=== PATIENT | male | born 1975 ===

== ENCOUNTER → 2019-09-18 09:45 | Outpatient (CLI) | payer BC, SELFPAY ==
--- NOTE | ~2019-09-18 | XR_ITS ---
XR chest 2V DATE: 09/18/2019 10:36 INDICATION: Shortness of breath TECHNIQUE: PA and lateral views COMPARISON: 06/22/2018 CT chest 06/15/2018 two-view chest x-ray FINDINGS: Mild prominence of the ascending aorta is again noted, stable in appearance compared to 06/15/2018 chest radiographic examination. The lungs are hyperinflated but clear of infiltrate or consolidation. Heart size is normal. No hilar or mediastinal mass lesion or lymphadenopathy. No pleural effusion or pulmonary vascular congestion o r pneumothorax. IMPRESSION: Stable mild prominence of the ascending aorta since 06/15/2018 Bilateral hyperinflation Reviewed, dictated and finalized at location A.
--- NOTE | ~2019-09-18 | XR_ITS ---
XR lumbar spine 2-3V DATE: 09/18/2019 10:06 INDICATION: Low back pain, sciatica TECHNIQUE: AP, lateral, coned lateral lumbosacral views COMPARISON: 02/16/2017 lumbar spine FINDINGS: Normal alignment of the lumbar spine. No fracture or bone destruction or spondylolisthesis. The inclu ded lower thoracic and lumbar pedicles are intact. Lumbar interspaces are preserved. There is moderat arpan severe degenerative disc disease however at L5-S1. The sacroiliac joints are normal. IMPRESSION: Moderately severe degenerative disc disease at L5-S1 Reviewed, dictated and finalized at location B.
== END ==
PROVIDERS: PCP Physician Assistant Medical; Visit Provider Physician Assistant Medical
DX: M54.40 Lumbago with sciatica, unspecified side (principal); M51.37 Other intervertebral disc degeneration, lumbosacral region; R91.8 Other nonspecific abnormal finding of lung field
CPT/HCPCS: 71046; 72100

== ENCOUNTER 2019-09-28 13:32 | Outpatient (CLI) | payer BC, SELFPAY ==
--- NOTE | ~2019-09-28 | MR_ITS ---
EXAMINATION: MR lumbar spine wo con DATE: 09/28/2019 14:23 INDICATION: Low back pain TECHNIQUE: Magnetic resonance imaging (MRI) of the lumbar spine was performed without intravenous con trast. Sequences included sagittal T2-weighted FSE, sagittal T2-weighted FS FSE, sagittal T1-weighted FSE, and axial T2-weighted FSE. COMPARISON: 12/31/2016 FINDINGS: Alignment is normal. Vertebral body heights are normal. T1 and T2 hyperintense hemangioma at L4. Davina re disc height loss at L5-S1 with associated degenerative fibrofatty endplate changes. Bone marrow si gnal is otherwise normal. Annular fissure with disc desiccation and mild disc height loss at L4-L5. T he conus medullaris terminates at L1. There is normal signal in the caudal spinal cord. Paravertebral soft tissues are unremarkable. The following disc levels are specifically discussed: T12-L1: The disc does not extend beyond the endplate margin. There is mild bilateral facet joint oste oarthritis. There is no neural foraminal stenosis. There is no central canal stenosis. L1-L2: The disc does not extend beyond the endplate margin. There is mild bilateral facet joint osteo arthritis. There is no neural foraminal stenosis. There is no central canal stenosis. L2-L3: Very small right foraminal disc protrusion. There is minimal bilateral facet joint osteoarthri tis. There is mild right neural foraminal stenosis. There is no central canal stenosis. L3-L4: Small bilateral foraminal disc protrusions There is mild bilateral facet joint osteoarthritis. There is minimal bilateral neural foraminal stenosis. There is no central canal stenosis. L4-L5: Disc is bulging with central annular fissure. There is mild bilateral facet joint osteoarthrit is. There is mild bilateral neural foraminal stenosis. There is mild central canal stenosis. L5-S1: Annular fissure with broad-based disc extrusion extending from foraminal zone to foraminal zon e with disc material extending couple millimeter cephalad and caudal to the level of the endplates. T here is mild left and moderate right facet joint osteoarthritis. There is moderate right and moderate to severe left neural foraminal stenosis. There is mild central canal stenosis. IMPRESSION: 1. No significant interval change in severe lower lumbar spondylosis. Reviewed, dictated and finalized at location A.
== END 2019-09-28 13:33 | disposition home or self-care (01) ==
PROVIDERS: PCP Family Medicine; Visit Provider Physician Assistant Medical
DX: G89.29 Other chronic pain (principal); M54.5 Low back pain
CPT/HCPCS: 72148

== ENCOUNTER 2021-10-18 13:17 | Observation (INO) | payer BC, SELFPAY ==
[2021-10-18] VITALS (32 sets, daily range): BP systolic 140–170; BP diastolic 91–138; PULSE 87–107; RESP 7–30; TEMP 36.4–36.7; O2SAT 100; BMI 22.6
--- NOTE | ~2021-10-18 | XR_ITS ---
EXAMINATION: XR chest 2V EXAM DATE: 10/18/2021 13:45 INDICATION: Shortness of breath, midline chest pain. TECHNIQUE: Frontal and lateral projections of the chest obtained and reviewed. Comparison is made to prior examination from 09/18/2019. FINDINGS: The lungs are clear. There are no pleural effusions. The cardiomediastinal silhouette is within normal limits. There is no pneumothorax suspected. The bones and soft tissues are unremarkab le. IMPRESSION: Normal chest x-ray exam. Reviewed, dictated and finalized at location A. IMPRESSION: Normal chest x-ray exam.
--- NOTE | ~2021-10-18 | NM_ITS ---
EXAMINATION: NM nila stress w perfusion DATE: 10/19/2021 12:40 INDICATION: Chest pain. TECHNIQUE: Rest images were obtained following intravenous administration of 9.6 mCi Tc99m tetrofosmi n (Myoview). The patient was infused intravenously with Lexiscan (regadenoson). Then, 30.8 mCi Tc99m tetrofosmin (Myoview) was administered intravenously, and stress images were obtained. Data was recon structed into short axis and horizontal and vertical long axis SPECT images. Gated SPECT images were also obtained. COMPARISON: None. FINDINGS: There is no definite reversible or fixed perfusion abnormality to suggest ischemia or infar ction. There is no segmental wall motion abnormality. Left ventricular ejection fraction measures 5 8%. IMPRESSION: 1. No definite ischemia or infarct. 2. Normal left ventricular ejection fraction measuring 58%. Reviewed, dictated and finalized at location A.
--- NOTE | ~2021-10-18 | CT_ITS ---
EXAMINATION: CTA chest PE protocol DATE: 10/18/2021 17:35 INDICATION: chest pain and dyspnea TECHNIQUE: Computed tomography angiography (CTA) of the chest was performed with 100 mL Omnipaque-350 intravenous contrast timed to evaluate the pulmonary arteries. Coronal maximum intensity projection 3D-reconstructions were created by the technologist. The dose-length product (DLP) was 458.41 mGy-cm. Automated exposure control and iterative reconstruction technique were employed. COMPARISON: 06/22/2018. FINDINGS: Study quality: Adequate Pulmonary arteries: No pulmonary emboli detected. Thoracic aorta: Unchanged aortic ectasia. Lung parenchyma and airways: Apical pleural scarring. Thoracic inlet, axillae and chest wall: Unremarkable. Mediastinum: Normal. Heart and pericardium: Normal. Coronary artery calcifications: Absent. Pleura: Unremarkable. Upper abdomen: No significant finding. Bones: No acute osseous finding. IMPRESSION: No CT evidence of pulmonary embolism. No acute intrathoracic process identified. Reviewed, dictated and finalized at location K. IMPRESSION: No CT evidence of pulmonary embolism. No acute intrathoracic process identified .
--- NOTE | ~2021-10-18 | US_ITS ---
EXAMINATION: US abdomen limited EXAM DATE: 10/19/2021 10:50 INDICATION: Abnormal LFT's . TECHNIQUE: Multiple grayscale and Doppler images of the abdomen right upper quadrant were obtained (b y a technologist who performed the scan) and subsequently reviewed. There is no prior study for dima smi. FINDINGS: The pancreatic head and body are normal in appearance. The pancreatic tail is not visualized. The l iver has normal echogenicity and contour. There are no focal liver lesions identified. There is no evidence of intrahepatic biliary duct dilation. Portal venous flow was seen in the hepatopedal, nor mal direction and has normal Doppler waveform. No right-sided hydronephrosis. Common bile duct measures 5 mm, which is normal. The gallbladder wall is normal in thickness, with ex pected amount of distention. No sonographic evidence of pericholecystic fluid. There is no cholelit hiases. Technologist performing exam reports patient did not demonstrate sonographic Hernandez's sign. Please note that this sign is less reliable in patients who have received pain medication. IMPRESSION: Unremarkable abdominal ultrasound exam. Reviewed, dictated and finalized at location B.
--- NOTE | 2021-10-18 13:19 | ECG_ITS ---
Measurements Intervals [place] Rate: 107 P: 44 RI: 156 QRS: 23 QRSD: 88 T: 42 QT: 331 QTc: 443 Interpretive Statements SINUS TACHYCARDIA NONSPECIFIC ST ABNORMALITY BORDERLINE ECG NO PREVIOUS ECG AVAILABLE FOR COMPARISON Electronically Signed On 10-19-2021 13:53:11 CDT by Kvng Fu M.D.
--- NOTE | 2021-10-18 13:34 | PC.NURSE ---
Lab rejected green top at this time
--- NOTE | 2021-10-18 13:41 | PC.NURSE ---
pt to xray via w/c
[2021-10-18 13:43] LABS: Basophils Percent Auto 0.5 % (0.2-1.2); Eosinophils Absolute Auto 0.1 K/mm3 (0-0.3); Eosinophils Percent Auto 0.9 % (0-4.4); Hematocrit 43.3 % (42.0-52.0); Hemoglobin 15.7 g/dL (14.0-18.0); Immature Granulocyte Absolute 0.04 K/mm3 (0.00-0.031); Immature Granulocyte Percent A 0.5 % (0-0.5); Immature Platelet Fraction Pct 3.9 % (0.9-11.2); Lymphocytes Absolute Auto 1.47 K/mm3 (0.9-3.2); Mean Corpuscular HGB Conc 36.3 g/dl (32-36); Mean Corpuscular Hemoglobin 36.5 pg (26-34); Mean Corpuscular Volume 100.7 fl (80-100); Mean Platelet Volume 9.4 fl (7.4-10.4); Monocytes Absolute Auto 0.5 K/mm3 (0.1-0.6); Neutrophils Absolute Auto 6.1 K/mm3 (1.3-6.7); Neutrophils Percent Auto 74.1 % (45.5-73.1); Platelet Count Result 162 k/mm3 (150-375); Red Cell Distribution Width 13.2 % (11.5-14.5); White Blood Count 8.2 K/mm3 (4.5-10.0)
--- NOTE | 2021-10-18 13:52 | PC.NURSE ---
Lab rejected green tops at this time collected by tech
[2021-10-18] MEDS: SODIUM CHLORIDE 0.9% IV 1,000 ML 999 ML IV CONT (14:10)
--- NOTE | 2021-10-18 14:20 | PC.NURSE ---
Lab called and rejected green top
[2021-10-18 14:31] LABS: Prothrombin Time 12.4 Seconds (11.1-14.7)
[2021-10-18 14:32] LABS: Partial Thromboplastin Time 33.7 SECONDS (22.3-36.8)
--- NOTE | 2021-10-18 15:43 | PC.NURSE ---
Lab top and rejected green top- collected by this RN
--- NOTE | 2021-10-18 16:22 | ED.SOB ---
HPI - SOB/Dyspnea General Chief Complaint: Shortness of Breath/Dyspnea Stated Complaint: sob Time Seen by Provider: 10/18/21 13:46 Source: RN notes reviewed History of Present Illness HPI Narrative: Patient presents emergency department from home for chest pain. Patient states he was out mowing the yard today when he got a feeling of chest tightness across his anterior chest as well as a feeling shortness of breath. States that the symptoms resolved once he stopped mowing his yard moved inside and rest he states that over the past week he has been having intermittent feelings of shortness of breath with some tightness of his chest usually worse with activity improves with rest he gone to the urgent care today and had a Covid and flu test that was negative states he has had some rhinorrhea with this but denies any other symptoms states he has been under increased stress secondary to his passing away from a heart attack in the past year he denies any cardiac history does have a history of tobacco use and hypertension Related Data Home Medications Medication Instructions Recorded Confirmed No Home Medications 10/18/21 10/18/21 Allergies Allergy/AdvReac Type Severity Reaction Status Date / Time Penicillins Allergy Unknown Unknown Verified 10/18/21 14:01 Review of Systems Review of Systems: Gen.: Denies fevers or chills Eyes: Denies eye pain or visual change ENT: Reports rhinorrhea Respiratory: Ports shortness of breath CV: Reports chest pain GI: Denies abdominal pain nausea, emesis or diarrhea Musculoskeletal: Denies back pain or muscle pain Neuro: Denies numbness, tingling, weakness or focal weakness Skin: Denies rash Except as documented, all other systems reviewed and negative [facility] Past Medical History Medical History (Updated 10/18/21 @ 19:29 by Baldo Hearn DO) BMI 24.0-24.9, adult Essential hypertension Hyperlipidemia Family History Family History Father No problems noted. Mother Collapsed lung Hypertension Sibling No problems noted. 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 CARDIOVASCULAR: Regular rate and rhythm without murmurs rubs or gallops. ABDOMINAL: Soft, nontender, nondistended, no rebound or guarding MUSCULOSKELETAl: Moves all extremities. No clubbing, cyanosis or edema. NEURO: Awake and alert. Following commands, speech normal, no focal deficits SKIN:: Warm, dry. No rashes lesions or abrasions PSYCHIATRIC: Normal affect/mood, Course Course Emergency Course: Discussed with Dr. Ivan recommends admission with cardiac rule out Discussed with Dr. Mayes agrees with admission Discussed with patient and family results of workup and diagnosis. Discussed need for admission. Patient and family understand and agree to current treatment plan Vital Signs Vital signs: Vital Signs Temperature 97.6 F 10/18/21 13:32 Pulse Rate 101 H 10/18/21 13:32 Respiratory Rate 18 10/18/21 13:32 Blood Pressure 160/95 H 10/18/21 13:32 Pulse Oximetry 100 10/18/21 13:32 Temperature 97.6 F 10/18/21 13:32 Pulse Rate 105 H 10/18/21 19:13 Respiratory Rate 18 10/18/21 19:13 Blood Pressure 170/138 H 10/18/21 19:13 Pulse Oximetry 100 10/18/21 19:13 MDM - SOB/Dyspnea Lab Data Result diagrams: 10/18/21 13:34
--- NOTE | 2021-10-18 16:25 | PC.NURSE ---
Green tops (2) rejected again by lab, collected by this RN
--- NOTE | 2021-10-18 16:30 | PC.NURSE ---
Phlebotomy called to draw patient
--- NOTE | 2021-10-18 16:47 | PC.NURSE ---
Lab rejected green tops collected by phlebotomy
--- NOTE | 2021-10-18 16:50 | PC.NURSE ---
called lab and spoke to allyn about green tops. He asked that we send a red top instead of a green top.
[2021-10-18 17:16] LABS: Alanine Aminotransferase 66 U/L (4-50); Albumin Level 2.6 g/dL (3.5-5.1); Alkaline Phosphatase 107 U/L (38-126); Anion Gap 5 mmol/L (8-16); Aspartate Amino Transferase 98 U/L (17-59); Bilirubin,Total 1.6 mg/dL (0.2-1.3); Blood Urea Nitrogen 12 mg/dL (9-20); Calcium 6.7 mg/dL (8.4-10.2); Carbon Dioxide 16 mmol/L (22-30); Chloride 109 mmol/L (98-107); Estimated CRCL calculation 104 ml/min; Estimated Glomerular Filt Rate > 60; Glucose 78 mg/dL (65-110); Potassium 3.9 mmol/L (3.4-5.0); Sodium 130 mmol/L (137-145)
[2021-10-18 17:25] LABS: Estimated CRCL calculation 86 ml/min; Estimated Glomerular Filt Rate > 60
[2021-10-18 18:58] LABS: Troponin I < 0.012 ng/mL (0.000-0.034)
--- NOTE | 2021-10-18 19:15 | PC.NURSE ---
Pt calling out. RN into room to speak with pt. Pt expressing frustration with how long of a visit he has had and how many blood draws that needed due to hemolzyed samples. RN explained process to pt. Pt verbalized understanding. RN informed pt that all test are back and will speak to ERP about desire to be d/c.
--- NOTE | 2021-10-18 19:26 | PM.IMHP ---
H&P: HPI History of Present Illness Date/Time: 10/18/21 19:26 Chief Complaint: Chest pain Narrative: This is a 46-year-old male with past medical history significant for hypertension, patient smokes half a pack of cigarettes daily for the last 20+ years he also drinks 6 beers most days. Patient just recently lost his in May of 2021 has had poor appetite ever since and has been under lot of stress. He presents today to the emergency room due to chest pain localized to the retrosternal area nonradiating while he was exerting himself, had some dizziness and diaphoresis with it ,no near-syncope or syncope he felt nauseous but no vomiting, no palpitations, the pain went away on its own but was intense enough to bring him to the emergency room he rated at 10/10 in intensity when was at its worse, patient has had nasal congestion and postnasal drip however no wheezing, no fevers, no chills, no rigors, no change in sputum quality. Patient has had also daily headaches. In emergency room patient was found to have systolic blood pressure in the 150-100 and 60s range and diastolic blood pressure in the 90s range. EKG did not show any acute changes. A chest x-ray was clear and patient was rule out for PE with a negative CT angiogram of the chest. Patient is been admitted for further evaluation ,management and treatment. Review of Systems Review of Systems: Chest pain localized in the retrosternal area Constitutional: Constitutional: Denies chills, Reports excessive sweating, Denies fatigue, Denies fever(s), Denies malaise, Denies night sweats, Reports poor appetite and Denies weakness Eyes: Eyes: Denies change in vision ENT: Denies dysphagia, Reports nasal discharge, Denies odynophagia, Reports post nasal drip and Denies sore throat Cardiovascular: Cardiovascular: Reports chest pain, Denies pedal edema, Denies leg edema, Reports lightheadedness, Denies radiating jaw, neck or arm pain, Denies palpitations, Denies dyspnea on exertion, Denies orthopnea and Denies paroxysmal nocturnal dyspnea Respiratory: Respiratory: Denies change in phlegm color, Denies chest congestion, Denies cough, Denies excessive phlegm production, Denies pain on inspiration, Denies pain with cough and Denies wheezing Gastrointestinal: Gastrointestinal: Denies abdominal pain, Denies dyspepsia, Denies heartburn, Denies diarrhea, Reports nausea and Denies vomiting Genitourinary: Genitourinary: Denies dysuria Musculoskeletal: Musculoskeletal: Denies myalgias, Denies arthralgias and Denies muscle weakness Integumentary/Breasts: Skin/Breast: Denies rash Neurologic: Denies focal weakness and Denies Sensory deficit (Neuro) Psychiatric: Psychiatric: Reports change in appetite Endocrine: Endocrine: Denies cold intolerance, Denies heat intolerance, Denies polydipsia and Denies palpitations Hematologic/Lymphatic: Hematologic/Lymphatic: Reports no additional hematologic/lymphatic complaints and Reports as per HPI Allergic/Immunologic: Allergic/Immunologic: Reports no additional allergic/immunologic complaints and Reports as per HPI [facility] Past Medical History Medical History (Updated 10/19/21 @ 01:54 by Gene Garcia MD) BMI 24.0-24.9, adult Essential hypertension Hyperlipidemia Family History Family History Father No problems noted. Mother Collapsed lung Hypertension Sibling No problems noted. Other Family history of cardiovascular disease Social History Social History Smoking packs per day: 0.5 Smoking cigarettes per day: 10.0 Years smoked: 26 Smoking pack-years: 13.00 Smoking status: Current every day smoker Tobacco type: cigarettes Second hand tobacco smoke exposure: Yes Alcohol intake: current Drinks per week: 42 Substance use: never Substance use type: does not use Additional occupation/education com
[2021-10-18] MEDS: ASPIRIN 81 MG CHEWABLE TABLET 324 MG PO (19:28)
--- NOTE | 2021-10-18 21:31 | ADMGEN ---
This patient, Blaise Covarrubias, was admitted to IMU Room 210-01. Patient/family oriented to hospital policies and general routines including ID bracelet, bed and alarms, visiting hours, pain management, procedures, bathroom and other care routines, personal items, smoking policy, room service/diet, and visiting hours. Information on how to activate the Rapid Response Team has been discussed. Patient/Family are encouraged to report perceived risks to care and to ask questions if they do not understand what they are told or what they should do.
[2021-10-19] VITALS (8 sets, daily range): BP systolic 111–144; BP diastolic 79–92; PULSE 56–112; RESP 16–20; TEMP 36.4–36.7; O2SAT 99–100
--- NOTE | 2021-10-19 | EST_ITS ---
Patient Info Name: Blaise Covarrubias Age: 46 years : 1975 Gender: Male Ht: 74 in Wt: 190 lbs BSA: 2.12 m2 HR: 80 bpm BP: 132 / 93 mmHg Heart Rhythm: Sinus Rhythm Exam Date: 10/19/2021 11:41 AM Exam Location: [facility] Stress Patient Status: Inpatient Admit Date: 10/18/2021 Staff Ordering Physician: Constantino Cook MD Attending Provider: Constantino Cook MD Exercise Technologist: Bernadine Laboy, CT Exam Type: CA stress nila w NM Summary 1. Normal sinus rhythm - normal ECG. 2. No ST segment abnormalities following injection of Lexiscan. 3. Clinically and electrocardiographically uneventful Lexiscan stress test. 4. Myocardial perfusion imaging exam to be dictated by the Radiology Department. Protocol: Lexiscan Stress ECG Details Stage: REST Duration (min): 0 min : 58 sec HR (bpm): 85 SBP (mmHg): 132 DBP (mmHg): 93 Stage: REST Duration (min): 5 min : 42 sec HR (bpm): 83 SBP (mmHg): 132 DBP (mmHg): 93 Stage: STAGE 1 Duration (min): 1 min : 0 sec HR (bpm): 102 SBP (mmHg): 136 DBP (mmHg): 87 Stage: RECOVERY Duration (min): 1 min : 0 sec HR (bpm): 112 SBP (mmHg): 136 DBP (mmHg): 87 Stage: RECOVERY Duration (min): 2 min : 0 sec HR (bpm): 117 SBP (mmHg): 136 DBP (mmHg): 87 Stage: RECOVERY Duration (min): 3 min : 0 sec HR (bpm): 93 SBP (mmHg): 134 DBP (mmHg): 97 Stage: RECOVERY Duration (min): 4 min : 0 sec HR (bpm): 103 SBP (mmHg): 134 DBP (mmHg): 97 Stage: RECOVERY Duration (min): 4 min : 6 sec HR (bpm): 89 SBP (mmHg): 134 DBP (mmHg): 97 Rest HR: 83 bpm Peak HR: 121 bpm Rest Sys BP: 132 mmHg Peak Sys BP: 136 mmHg Max Pred HR: 173 bpm % Max Pred HR: 70 % Target HR: 147 bpm Max RPP: 16,456 bpm*mmHg Termination Reason: Completed protocol Cardiac Symptoms: None Total Time: 1 min : 0 sec Rest Moise BP: 93 mmHg Peak Moise BP: 87 mmHg Total Dose: 0.4 mg Resting ECG Normal sinus rhythm - normal ECG. Stress ECG No ST segment abnormalities following injection of Lexiscan. Report Signatures
[2021-10-19 04:47] LABS: Basophils Percent Auto 0.5 % (0.2-1.2); Eosinophils Absolute Auto 0.2 K/mm3 (0-0.3); Eosinophils Percent Auto 3.8 % (0-4.4); Hematocrit 36.3 % (42.0-52.0); Hemoglobin 12.9 g/dL (14.0-18.0); Immature Granulocyte Absolute 0.02 K/mm3 (0.00-0.031); Immature Granulocyte Percent A 0.4 % (0-0.5); Lymphocytes Absolute Auto 2.23 K/mm3 (0.9-3.2); Lymphocytes Percent Auto 40.2 % (18.3-44.2); Mean Corpuscular HGB Conc 35.5 g/dl (32-36); Mean Corpuscular Hemoglobin 36.1 pg (26-34); Mean Corpuscular Volume 101.7 fl (80-100); Mean Platelet Volume 9.6 fl (7.4-10.4); Monocytes Absolute Auto 0.5 K/mm3 (0.1-0.6); Monocytes Percent Auto 9.2 % (2.6-8.5); Neutrophils Absolute Auto 2.6 K/mm3 (1.3-6.7); Neutrophils Percent Auto 45.9 % (45.5-73.1); Platelet Count Result 120 k/mm3 (150-375); Red Blood Count 3.57 M/mm3 (4.6-6.20); Red Cell Distribution Width 13.1 % (11.5-14.5); White Blood Count 5.6 K/mm3 (4.5-10.0)
[2021-10-19 08:07] LABS: Anion Gap 3 mmol/L (8-16); Blood Urea Nitrogen 11 mg/dL (9-20); Calcium 7.7 mg/dL (8.4-10.2); Carbon Dioxide 28 mmol/L (22-30); Chloride 102 mmol/L (98-107); Estimated CRCL calculation 83 ml/min; Estimated Glomerular Filt Rate > 60; Glucose 102 mg/dL (65-110); Sodium 133 mmol/L (137-145)
[2021-10-19 08:08] LABS: Alanine Aminotransferase 72 U/L (4-50); Albumin Level 3.3 g/dL (3.5-5.1); Alkaline Phosphatase 103 U/L (38-126); Aspartate Amino Transferase 128 U/L (17-59); Bilirubin,Total 2.8 mg/dL (0.2-1.3)
[2021-10-19 08:25] LABS: Troponin I 0.021 ng/mL (0.000-0.034)
[2021-10-19] MEDS: lisinopriL 20 MG TABLET PO (08:55)
--- NOTE | 2021-10-19 11:27 | PM.IMPN ---
Progress Note: A&P Assessment and Plan (1) Chest pain: Code(s): R07.9 - Chest pain, unspecified Status: Acute Assessment and Plan: Patient has been admitted to IMU WILL DO LEXISCAN STRESS TEST IN A.M. Supportive care EKG reviewed Serial troponins CTA reviewed Chest x-ray reviewed (2) Essential hypertension: Code(s): I10 - Essential (primary) hypertension Status: Acute Assessment and Plan: Patient has been restarted on lisinopril Uncontrolled (3) Tobacco use: Code(s): Z72.0 - Tobacco use Status: Acute Assessment and Plan: Nicotine patch as needed Consult about tobacco cessation (4) Alcohol abuse: Code(s): F10.10 - Alcohol abuse, uncomplicated Status: Acute Assessment and Plan: CIWA protocol as needed Consult about cessation (5) Chronic low back pain without sciatica: Code(s): M54.5 - Low back pain; G89.29 - Other chronic pain Status: Acute Assessment and Plan: Tylenol p.r.n. (6) Abnormal LFTs: Code(s): R79.89 - Other specified abnormal findings of blood chemistry Status: Acute Assessment and Plan: Likely secondary to alcohol intake Right upper quadrant ultrasound in a.m. (7) Hyponatremia: Code(s): E87.1 - Hypo-osmolality and hyponatremia Status: Acute Assessment and Plan: Patient appears euvolemic Has had poor oral intake due to grievance Also patient drinks several beers daily Will encourage p.o. intake Continue to monitor Some dilutional effect from beer drinking is possible however overall with poor oral intake Monitor daily intake and output Subjective Date/time seen: 10/19/21 11:27 Interval history: HPI:This is a 46-year-old male with past medical history significant for hypertension, patient smokes half a pack of cigarettes daily for the last 20+ years he also drinks 6 beers most days. Patient just recently lost his in May of 2021 has had poor appetite ever since and has been under lot of stress. He presents today to the emergency room due to chest pain localized to the retrosternal area nonradiating while he was exerting himself, had some dizziness and diaphoresis with it ,no near-syncope or syncope he felt nauseous but no vomiting, no palpitations, the pain went away on its own but was intense enough to bring him to the emergency room he rated at 10/10 in intensity when was at its worse, patient has had nasal congestion and postnasal drip however no wheezing, no fevers, no chills, no rigors, no change in sputum quality. Patient has had also daily headaches. In emergency room patient was found to have systolic blood pressure in the 150-100 and 60s range and diastolic blood pressure in the 90s range. EKG did not show any acute changes. A chest x-ray was clear and patient was rule out for PE with a negative CT angiogram of the chest. Patient is been admitted for further evaluation ,management and treatment. Review of Systems Review of Systems: All systems reviewed & are unremarkable except as noted in HPI and below (HPI) Objective Data Vital Signs Vital Signs: Vital Signs - 24 hr 10/18/21 13:32 10/18/21 13:59 10/18/21 14:00 Temperature 97.6 F Pulse Rate 101 H 98 106 H Respiratory Rate 18 18 30 H Blood Pressure 160/95 H 169/129 H 169/129 H Pulse Oximetry 100 100 100 10/18/21 14:31 10/18/21 15:01 10/18/21 15:31 Temperature Pulse Rate 93 91 91 Respiratory Rate 19 18 18 Blood Pressure 156/105 H 154/103 H 155/99 H Pulse Oximetry 100 100 100 10/18/21 16:49 10/18/21 17:01 10/18/21 19:11 Temperature Pulse Rate 87 88 107 H Respiratory Rate 18 7 L 20 Blood Pressure 155/99 H 146/94 H Pulse Oximetry 100 100 100 10/18/21 19:13 10/18/21 19:14 10/18/21 19:15 Temperature Pulse Rate 105 H Respiratory Rate 18 Blood Pressure 170/138 H Pulse Oximetry 100 100 100 10/18/21 19:30 10/18/21 19:31 10/18/21 19:45 Temperature Pu
--- NOTE | 2021-10-19 11:58 | PM.CNCAR ---
Assessment and Plan Assessment and plan (1) Chest pain: Code(s): R07.9 - Chest pain, unspecified Status: Acute Assessment and Plan: Has been having some chest tightness associated with shortness of breath. He underwent a lexiscan stress test this morning that was negative for any ischemia and did not show any wall motion abnormalities. Normal EF. He carries a diagnosis of hyperlipidemia although he does not take a statin and doesn't remember when he last had his lipids checked. Will check lipid panel. Risk modification for CAD including smoking cessation, heart healthy diet, aerobic exercise. (2) Shortness of Breath: Code(s): R06.02 - Shortness of breath Status: Acute Assessment and Plan: Work up negative thus far, CTA negative for PE, CXR normal. (3) Encounter for tobacco use cessation counseling: Code(s): Z71.6 - Tobacco abuse counseling Status: Acute Assessment and Plan: Encouraged cessation. He is using nicotine patches currently (4) Essential hypertension: Code(s): I10 - Essential (primary) hypertension Status: Acute Assessment and Plan: Lisinopril started. Antihypertension regimen can be adjusted as outpatient History of Present Illness History of Present Illness Consult date/time: 10/19/21 11:58 Requesting physician: Baldo Hearn DO Consult reason: chest pain Reason For Visit: Chest pain Narrative: Mr. Covarrubias is a 46-year-old male with a medical history of hypertension, aortic aneurysm, and tobacco abuse. Patient presented to the hospital following worsening shortness of breath over past week or so. He has also been experiencing some chest tightness, sore throat, nausea, and postnasal drip. States he felt like his lungs ?were filled with fluid.? He denies having any significant medical problems and denies any cardiac history but he does know that he has an aortic aneurysm that is stable and being monitored. Prior to recent occurrences of shortness of breath and chest tightness he has not experienced any of these symptoms. He denies any swelling, orthopnea, PND. He does feel nauseous from time to time which he attributes to nasal drainage. Currently he is free from any chest tightness and is breathing comfortably on room air. He has no complaints. I am seeing him in the cardiac stress lab. Review of Systems Review of Systems: All systems reviewed & are unremarkable except as noted in HPI and below Constitutional: Constitutional: Denies fatigue, Denies lethargy and Denies weakness Eyes: Eyes: Denies blurry vision and Denies change in vision ENT: Reports Normal hearing present, Reports nasal congestion, Reports nasal discharge and Denies tinnitus Cardiovascular: Cardiovascular: Denies chest pain, Denies diaphoresis, Denies pedal edema, Denies leg edema, Denies lightheadedness and Denies palpitations Respiratory: Respiratory: Reports chest congestion, Reports dyspnea and Reports dyspnea on exertion Gastrointestinal: Gastrointestinal: Denies abdominal pain, Denies constipation, Denies diarrhea and Reports nausea Genitourinary: Genitourinary: Denies dysuria, Denies urinary frequency, Denies urinary hesitancy and Denies urinary urgency Musculoskeletal: Musculoskeletal: Denies back pain, Denies arthralgias and Denies neck pain Integumentary/Breasts: Skin/Breast: Denies dry skin, Denies rash and Denies unusual bruising Neurologic: Denies confusion, Denies headache(s) and Denies numbness Psychiatric: Psychiatric: Reports depression Endocrine: Endocrine: Denies excessive sweating, Denies fatigue and Denies flushing Hematologic/Lymphatic: Hematologic/Lymphatic: Denies easy bleeding and Denies easy bruising Allergic/Immunologic: Allergic/Immunologic: Denies GI upset with certain foods and Denies lip swelling PMFSH Past Medical History Medical History BMI 24.0-24.9, adult
--- NOTE | 2021-10-19 14:36 | PM.DS ---
DS: Admitting Diagnosis Discharge Date 10/19/2021 Admitting Diagnosis Chest pain DS: Discharge Diagnosis Discharge Diagnosis (1) Chest pain: Code(s): R07.9 - Chest pain, unspecified Status: Acute Assessment and Plan: Upper chest. Associated upper respiratory symptoms with postnasal drip and congestion. He has a history of long-term smoking and currently smokes as well. COVID and flu swab was done in the urgent care which came back negative. His chest pain resolved upon Porfirio to the ER spontaneously. No family history of premature coronary artery disease. Does have history of hypertension and hyperlipidemia the not on any medications at home. He was started on lisinopril for his blood pressure. Is mildly acidotic on arrival which was treated with IV fluid suggestive of likely dehydration 40 present on arrival to. For risk stratification Lexiscan stress test was done on 10/19/2021 which came back now normal. His also evaluated with EKG which did show any acute abnormality and had a serial troponin which came back negative. His chest x-ray was normal and CTA did show any PE. Chest pain could relate to his elevated blood pressure is well and improved with normalization. (2) Essential hypertension: Code(s): I10 - Essential (primary) hypertension Status: Acute Assessment and Plan: Patient has been restarted on lisinopril Uncontrolled Will continue home medication Keep on lisinopril 10 mg daily (3) Tobacco use: Code(s): Z72.0 - Tobacco use Status: Acute Assessment and Plan: Nicotine patch as needed Counseled regarding tobacco cessation (4) Alcohol abuse: Code(s): F10.10 - Alcohol abuse, uncomplicated Status: Acute Assessment and Plan: CIWA protocol as needed Suggested for abstinence of alcohol due to elevated liver enzymes. Right upper quadrant unremarkable (5) Chronic low back pain without sciatica: Code(s): M54.5 - Low back pain; G89.29 - Other chronic pain Status: Acute Assessment and Plan: Tylenol p.r.n. (6) Abnormal LFTs: Code(s): R79.89 - Other specified abnormal findings of blood chemistry Status: Acute Assessment and Plan: Likely secondary to alcohol intake Right upper quadrant ultrasound unremarkable (7) Hyponatremia: Code(s): E87.1 - Hypo-osmolality and hyponatremia Status: Acute Assessment and Plan: Patient appears euvolemic Has had poor oral intake due to grievance Also patient drinks several beers daily Will encourage p.o. intake Continue to monitor Some dilutional effect from beer drinking is possible however overall with poor oral intake Monitor daily intake and output Improved with IV hydration DS: Summary Hospital Course Hospital Course: as above Time Spent with Patient Time attestation: Total time spent providing and/or coordinating discharge services: DS: Data Data Completed and Pending Labs on day of discharge: Labs from last 24 hours 10/19/21 10/19/21 10/19/21 07:45 07:45 04:19 WBC 5.6 RBC 3.57 L Hgb 12.9 L Hct 36.3 L MCV 101.7 H MCH 36.1 H MCHC 35.5 RDW 13.1 Plt Count 120 L MPV 9.6 Immature Gran % (Auto) 0.4 Neut % (Auto) 45.9 Lymph % (Auto) 40.2 [place] % (Auto) 9.2 H Eos % (Auto) 3.8 Baso % (Auto) 0.5 Lymph # (Auto) 2.23 [place] # (Auto) 0.5 Eos # (Auto) 0.2 Baso # (Auto) 0.0 Abs Immat Gran (auto) 0.02 Absolute Neuts (auto) 2.6 Absolute Nucleated RBC 0.0 Nucleated RBC % 0.0 D-Dimer Sodium 133 L Potassium TNP Chloride 102 Carbon Dioxide 28 Anion Gap 3 L BUN 11 Creatinine 1.10 Estim Creat Clear Calc 83 Estimated GFR > 60 Glucose 102 Calcium 7.7 L Total Bilirubin 2.8 H AST 128 H ALT 72 H Alkaline Phosphatase 103 Troponin I 0.021 Total Protein 7.0 Albumin 3.3 L 10/18/21 10/18/21 10/18/21 18:24 17:23
== END 2021-10-19 15:23 | disposition home or self-care (01) ==
LOC: ANHED 19:29 → ANHIMU 20:18
PROVIDERS: Emergency Medicine; Admitting Provider Internal Medicine; Emergency Provider Emergency Medicine; PCP Family Medicine; Visit Provider Internal Medicine
DX: R07.9 Chest pain, unspecified (principal); R06.00 Dyspnea, unspecified; R79.89 Other specified abnormal findings of blood chemistry; E87.1 Hypo-osmolality and hyponatremia; M54.50 Low back pain, unspecified; G89.29 Other chronic pain; I10 Essential (primary) hypertension; E78.5 Hyperlipidemia, unspecified; F17.210 Nicotine dependence, cigarettes, uncomplicated; F10.10 Alcohol abuse, uncomplicated
CPT/HCPCS: 36415; 71046; 71275; 76705; 78452; 80053; 84484; 85025; 85055; 85380; 85610; 85730; 93005; 93017; 99285; A9270; A9502; G0378; J2785; J7030; Q9967